=== PATIENT | male | born 1965 | race Caucasian/White ===

== ENCOUNTER → 2017-12-17 | Outpatient (CLI) | payer OTHER ==
--- NOTE | 2017-12-17 13:15 | RADIOLOGY IMAGING REPORT ---
FACILITY: [facility] [place] PATIENT NAME: Robby Gutierrez : 1965 MR: [id number] V: [id number] EXAM DATE: ORDERING PHYSICIAN: TYESHA DUFFY TECHNOLOGIST: Location: [facility] Patient: Robby Gutierrez : 1965 Visit/Account:[id number] Date of Sevice: 12/17/2017 L SPINE W/O CONTRAST EXAMINATION: Lumbar spine MRI without IV contrast Additional Pertinent history: Right-sided back pain leg pain for several months COMPARISON STUDIES: none TECHNIQUE: Multi-planar, multi-sequence lumbar spine MRI was performed without intravenous contrast administration. FINDINGS: Alignment: 6 mm retrolisthesis of S1 with respect L5 Vertebral marrow signal: negative Distal thoracic cord: negative Conus: negative, terminates at L1 Cauda equina: negative Paravertebral soft tissues: negative Visualized abdominal and pelvic structures: negative Disc Spaces: Lower T spine: negative L1-2: negative L2-3: negative L3-4: negative L4-5: negative L5-S1: Spondylolysis with spondylolisthesis at the L5-S1 level. This is resulting in a 6 mm retrolis thesis of S1 with respect L5. There is a disc bulging change of mild degree without any significant impingement upon the thecal sac or the transiting/exiting nerve roots. IMPRESSION: 1. Spondylolysis with 6 mm of spondylolisthesis at the L5-S1 level. No thecal sac or nerve root imp ingement changes of any significance at any level within the lumbar spine Report Dictated By: Baldo Péerz MD at 12/17/2017 1:01 PM Report E-Signed By: Baldo Pérez MD at 12/17/2017 1:11 PM WSN:[email or web address]
== END ==
LOC: RAD 09:23
PROVIDERS: ATTEND Physician Assistant
DX: M47.897 Other spondylosis, lumbosacral region (principal)
CPT/HCPCS: 72148